=== PATIENT | female | born 1935 | race Caucasian/White ===

== ENCOUNTER 2018-05-21 14:14 | Emergency (ER) | payer MEDICARE, OTHER ==
[~2018-05-21] VITALS: Ht 167.6 cm; Wt 77.1 kg
[2018-05-21 14:17] VITALS: BP 165/73
== END 2018-05-21 14:36 | disposition left against medical advice (07) ==
LOC: ED 14:30
DX: M79.671 Pain in right foot (principal); M79.89 Other specified soft tissue disorders; E11.9 Type 2 diabetes mellitus without complications; Z53.21 Procedure and treatment not carried out due to patient leaving prior to being seen by health care provider